=== PATIENT | male | born 1960 | race Caucasian/White ===

== ENCOUNTER → 2019-07-31 | Outpatient (CLI) | payer BC ==
[~2019-07-31] VITALS: Ht 177.8 cm; Wt 98.8 kg
[~2019-07-31] MED LIST: CELEBREX 200MG200 MG PO; FLOMAX 0.40.4 MG/CAP PO; LIPITOR20 MG PO; PROTONIX 40MG T40 MG PO
[2019-07-31 10:40] VITALS: BP 144/95; PULSE 70
[2019-07-31 11:50] VITALS: BP 155/80; PULSE 65
[2019-07-31 11:57] VITALS: BP 158/84; PULSE 91
[2019-07-31 11:58] VITALS: BP 143/84; PULSE 86
[2019-07-31 12:00] VITALS: BP 148/81; PULSE 75
== END ==
LOC: COL.CARD 10:21
DX: E78.5 Hyperlipidemia, unspecified (principal); F17.210 Nicotine dependence, cigarettes, uncomplicated
CPT/HCPCS: A9500